=== PATIENT | male | born 1945 | race Caucasian/White ===

== ENCOUNTER → 2024-08-01 | Outpatient (CLI) | payer BC ==
[2024-08-01 12:02] VITALS: BP 147/83; PULSE 67; RESP 16; TEMP 98.4
--- NOTE | 2024-08-01 12:44 | P.SLEEP ---
History of Present Illness DATE: 08/01/2024 CONSULTATION/NEW PATIENT EVALUATION HISTORY OF PRESENT ILLNESS/SLEEP-WAKE EVALUATION: 79-year-old gentleman had been evaluated in the sleep center for possible obstructive sleep apnea hypopnea syndrome. SLEEP SCHEDULE: Usually sleep schedule from 7:30 PM to 6 AM 7 days a week. FALLING ASLEEP: No problems with falling asleep. DURING SLEEP: Patient snores and wakes up from sleep 3 times with nocturia. No history of hypnogogical hallucinations, sleep paralysis, or cataplexy. DURING THE DAY/WAKE STATE: Patient feels sleepiness during the day. [place] sleepiness scale is 4. Patient takes 1 nap at noon. PAST MEDICAL HISTORY: Hypertension, history of atrial fibrillation, iron deficiency anemia, hyperlipidemia, BPH, rosacea. PAST SURGICAL HISTORY: Right hip replacement, cholecystectomy. MEDICATIONS: Please see below. SOCIAL HISTORY: Please see below. FAMILY HISTORY: Please see below. REVIEW OF SYSTEMS: Snoring, multiple awakenings from sleep, sleepiness. No fevers. No double vision. No recent chest pain. No shortness of breath. No abdominal pain. No bleeding episodes. No blood in urine. No seizure episodes. PHYSICAL EXAMINATION: GENERAL: A pleasant patient without any distress. VITAL SIGNS: Please see below, weight 233 pounds, BMI 34.4. HEENT: PERRLA, EOMI. Evaluation of oropharynx showed tongue protrudes midline, low position of soft palate Mallampati. Retrognathia 5 mm. Rosacea on the face NECK: Supple. No JVD. Thyroid is not palpable. 18 inches in circumference. LUNGS: Clear to percussion and to auscultation. Good air exchange. No wheezing or rhonchi. HEART: S1, S2 regular. No murmurs, gallops or rubs. ABDOMEN: Soft and nontender. Bowel sounds are present. No organomegaly appreciated. EXTREMITIES: No clubbing or cyanosis. LIGHTING ADVISER: Awake, alert, and oriented x3. Cranial nerves 2 to 7 intact. There is no fasciculation or atrophy noted. No focal deficits observed. ASSESSMENT: 1. Snoring, multiple awakenings from sleep with nocturia, small oropharyngeal airspace, Mallampati 3, wide neck 18 inches in circumference, retrognathia 5 mm. Obstructive sleep apnea hypopnea syndrome. 2. Hypertension. 3. History of atrial fibrillation. 4. Iron deficiency anemia. 5 hyperlipidemia. 6 . BPH. 7. Status post cholecystectomy. 8. Status post right hip replacement. 9 . Rosacea. PLAN: 1. Polysomnography for evaluation of patient's breathing during sleep. 2. Following plan after reading sleep study. 3. Preferable position during sleep on the side. 4. No driving if patient feels any sleepiness. Patient is aware of civil and criminal liability for unsafe driving. 5. Sleep hygiene with regular sleep time for at least 7.5-8 hours. 6. Watching weight. Thank you very much for referring this patient for consultation. Sincerely, Atilio Olivares MD, PhD, FAASM. Diplomat of [place] [employer], Sleep Medicine Board by [place] [employer] [place] [employer] [facility] [place] cc: Dennis Smiley MD, Jerome Mosquera MD Past Medical History Past Medical History: Atrial Fibrillation, Cancer, Hyperlipidemia, Hypertension Additional Past Medical History / Comment(s): skin cancer on forehead History of Any Multi-Drug Resistant Organisms: None Reported Past Surgical History: Joint Replacement, Tonsillectomy Additional Past Surgical History / Comment(s): rt hip, gall bladder removed Past Anesthesia/Blood Transfusion Reactions: No Reported Reaction Past Psychological History: No Psychological Hx Reported Smoking Status: Former smoker Past Alcohol Use History: Occasional Past Drug Use History: None Reported Medications and Allergies Home Medications Medication Instructions Recorded Confirmed Type Apixaban [Eliquis] 5 mg PO BID 08/01/24 08/01/24 History Atorvastatin [Lipitor] 10 mg PO DAILY 08/01/24 08/01/24 History Ferrous Sulfate [Feosol] 325 mg PO BID 08/01/24 08/01/24 History Losartan Potassium 100 mg PO 08/01/24 History Metoprolol Tartrate 25 mg PO 08/01/24 08/01/24 History Tamsulosin HCl [Flomax] 0.4 mg PO 08/01/24 History Physical Exam Vitals: Vital Signs Temp Pulse Resp BP Pulse Ox 08/01/24 12:01 98.4 F 67 16 147/83 98 Intake and Output 07/31/24 08/01/24 08/01/24 22:59 06:59 14:59 Other: Weight 105.687 kg Sleep Note - Sleep Data ESS Total: 4 - Sleep Note Sleep Note: Temperature: 98.4 F Pulse Rate: 67 Respiratory Rate: 16 Blood Pressure: 147/83 SpO2: 98 Height: 5 ft 9 in Weight: 105.687 kg BMI: Neck Circumference: 18
== END ==
LOC: 3 N SLEEP 11:09
PROVIDERS: ATTEND Internal Medicine
DX: G47.33 Obstructive sleep apnea (adult) (pediatric) (principal); I10 Essential (primary) hypertension; I48.91 Unspecified atrial fibrillation; D50.9 Iron deficiency anemia, unspecified; E78.5 Hyperlipidemia, unspecified; N40.0 Benign prostatic hyperplasia without lower urinary tract symptoms; L71.9 Rosacea, unspecified; R35.1 Nocturia; M26.19 Other specified anomalies of jaw-cranial base relationship; Z90.49 Acquired absence of other specified parts of digestive tract; Z96.641 Presence of right artificial hip joint; Z79.01 Long term (current) use of anticoagulants; Z79.899 Other long term (current) drug therapy
CPT/HCPCS: 99202